=== PATIENT | male | born 1990 | race Caucasian/White ===

== ENCOUNTER 2023-06-14 15:25 | Emergency (ER) | payer BC, OTHER ==
[2023-06-14 15:37] VITALS: BP 133/85; PULSE 83; RESP 18; TEMP 99.3; BMI 36.6
[2023-06-14] MEDS ORDERED: KETOROLAC TROMETHAMINE 30 MG/1 ML VIAL IM ONE (21:01)
[2023-06-14] MEDS ORDERED: KETOROLAC TROMETHAMINE 30 MG/1 ML VIAL ONE (21:04)
== END 2023-06-14 22:00 | disposition home or self-care (01) ==
LOC: JERFT 15:25 → JER 15:25
PROC: 3E0233Z Introduction of Anti-inflammatory into Muscle, Percutaneous Approach (ICD-10-PCS; principal; 2023-06-14)
DX: S82.141A Displaced bicondylar fracture of right tibia, initial encounter for closed fracture (principal); M25.561 Pain in right knee; R22.41 Localized swelling, mass and lump, right lower limb; V18.0XXA Pedal cycle driver injured in noncollision transport accident in nontraffic accident, initial encounter
CPT/HCPCS: 73564-TC-RT-FY; 73590-TC-RT-FY; 73610-TC-RT-FY; 73630-TC-RT-FY; 73700-TC-RT; 99284-25

== ENCOUNTER 2023-07-13 08:35 | Day surgery (SDC) | payer BC ==
[2023-06-30 17:46] VITALS: BMI 35.9
[2023-07-13] MEDS ORDERED: BUPIVACAINE HCL/EPINEPHRINE/PF 30 ML VIAL IJ ONE (09:08)
[2023-07-13] MEDS ORDERED: VANCOMYCIN 1,000 MG VIAL (RESTRICTED TO ID ONLY) ONE (09:08)
[2023-07-13] MEDS ORDERED: EPINEPHrine 1:1,000 1,000 MCG/ML ML ONE (09:08)
[2023-07-13] MEDS ORDERED: ONDANSETRON 4 MG/2 ML VIAL IVPUSH PRN (10:28)
[2023-07-13] MEDS ORDERED: oxyCODONE HCL 5 MG TABLET PO PRN ×2 (10:28)
[2023-07-13] MEDS ORDERED: ACETAMINOPHEN 325 MG TABLET (FP) PO PRN (10:28)
[2023-07-13] MEDS ORDERED: MIDAZOLAM HCL 2 MG/2 ML SINGLE DOSE VIAL ONE ×2 (10:29→10:53)
[2023-07-13] MEDS ORDERED: BUPIVACAINE HCL/PF 0.5% (5 MG/ML) 30 ML VIAL IJ ONE (10:29)
[2023-07-13] MEDS ORDERED: DEXAMETHASONE SOD PHOSPHATE/PF 10 MG/ML SDV ONE (10:30)
[2023-07-13] MEDS ORDERED: LACTATED RINGERS SOLUTION 1,000 ML IV SCH (10:30)
[2023-07-13] MEDS ORDERED: ACETAMINOPHEN INJECTION 100 ML IVPB ONE (10:30)
[2023-07-13] MEDS ORDERED: PROPOFOL 40 ML ONE (10:52)
[2023-07-13] MEDS ORDERED: ceFAZolin SODIUM 1 GM VIAL ONE ×3 (11:07)
[2023-07-13] MEDS ORDERED: TRANEXAMIC ACID 1000 MG/10 ML VIAL ONE (11:09)
[2023-07-13] MEDS ORDERED: DEXAMETHASONE SOD PHOSPHATE 4 MG/1 ML VIAL ONE (11:10)
[2023-07-13] MEDS ORDERED: ONDANSETRON 4 MG/2 ML VIAL ONE (11:10)
[2023-07-13] MEDS ORDERED: KETOROLAC TROMETHAMINE 30 MG/1 ML VIAL ONE (11:10)
[2023-07-13] MEDS ORDERED: FENTANYL CITRATE/PF 50 MCG/ML VIAL ONE ×3 (12:57→13:37)
[2023-07-13 13:34] VITALS: TEMP 97.9
[2023-07-13] MEDS ORDERED: oxyCODONE HCL 5 MG TABLET ONE (13:46)
[2023-07-13 15:02] VITALS: RESP 18
[2023-07-13 15:10] VITALS: BP 129/86; PULSE 70
== END 2023-07-13 14:50 | disposition home or self-care (01) ==
LOC: FASU 08:35
PROVIDERS: ATTEND Orthopaedic Surgery
PROC: 0MSN4ZZ Reposition Right Knee Bursa and Ligament, Percutaneous Endoscopic Approach (ICD-10-PCS; principal; 2023-07-13 11:26)
DX: S83.511A Sprain of anterior cruciate ligament of right knee, initial encounter (principal); S82.101A Unspecified fracture of upper end of right tibia, initial encounter for closed fracture; X58.XXXA Exposure to other specified factors, initial encounter; Y93.9 Activity, unspecified; Y92.9 Unspecified place or not applicable
CPT/HCPCS: 94760; C1713